=== PATIENT | female | born 1975 | race Two or more races ===

== ENCOUNTER 2022-12-10 14:40 | Emergency (ER) | payer BC ==
[~2022-12-10] VITALS: Ht 149.9 cm; Wt 59.0 kg
--- NOTE | 2022-12-10 14:50 | NUR ---
YEISON [id number] "Was in Physical Theraphy-Back pain worse now", PT HAS A CHRONIC BSACK PAIN
[2022-12-10] MEDS ORDERED: DIAZEPAM 5 MG TABLET PO ONE (15:00)
[2022-12-10] MEDS ORDERED: CYCLOBENZAPRINE 10 MG TABLET PO ONE (15:00)
[2022-12-10] MEDS ORDERED: KETOROLAC TROMETHAMINE INJ 60 MG/2 ML VIAL IM ONE (15:00)
--- NOTE | 2022-12-10 15:00 | NUR ---
DR MINA AT BEDSIDE FOR EVAL
[2022-12-10] MEDS ORDERED: CYCLOBENZAPRINE 10 MG TABLET ONE (15:04)
[2022-12-10] MEDS ORDERED: DIAZEPAM 5 MG TABLET ONE (15:04)
[2022-12-10] MEDS ORDERED: KETOROLAC TROMETHAMINE INJ 30 MG/ML VIAL ONE (15:04)
[2022-12-10] MEDS ORDERED: CYCL5TAB PO (15:38)
--- NOTE | 2022-12-10 16:15 | NUR ---
"SW Consult: SW consult was requested for homeless pt. Pt appeared alert and oriented x3 (self,place,situation). Pt was tearful and crying due to her back pain. She was requested for this ad writer to write a letter for her not to go to work for a couple of days. SW unable to do so and referred her to request from her physican. She is homeless and has no support. She reported mental illness: Depression and anxiety. SW had to provide emotional support. Pt denies visual/auditory hallucinations. Pt denies suicidal or homicidal ideation. Pt did not want TAP card and refused to sign waiver form. SW placed in chart. She was accepting of the resources. She stated that she resides at [facility] and has a penitentiary. She stated she was going to order an uber back to her penitentiary. DC PLAN: Pt stated she is ordering a uber back to [facility]. Shelters: [facility] Provider: [facility] Address: [address] [place] [address], [facility] # of Beds: 47 Population Served: [facility] 6 | [facility] Provider: [facility] Address: [facility] [address], [address] # of Beds: 66 Population Served: [facility] [place] Provider: [facility] Address: [address] [facility] [facility], [address] # of Beds: 56 Population Served: [facility] Travis OchoaMelinda [place] Provider: [facility] Address: [address] [place] [address], [address] # of Beds: 49 Population Served: [facility] 8 | [facility] Provider: [facility] Address: [address] [facility], [address] # of Beds: 37 Population Served: [facility] [address] [address] [place] ; [facility] [address] [facility] ; [facility] [place] [address] . Food Resources: [place] [employer] [facility] at [facility]- [address]; Meet Each Need with Dignity ([facility]) [address] Veloz[address] [facility]; [facility] [address] [facility]; [facility] [address] [place] Mental Health resources provided: [facility] [address] [place], [place] [id number] ; [facility] [address] [facility] [address], [place], [place] [id number] ; [facility] [address] [place], [place] [id number] ; [facility] [address] [place], [place] [id number] Healthcare Clinics: [facility] [address] [facility], [address] [place]. [place] ; [facility] [address] [place] [address]; [facility] [place] [address] [facility]. [place] [phone]) [phone] Counseling--[facility] [address], [address] [place], [place] [address] (Specializes in in-depth psychotherapy for emotional distress: anxiety, depression, interpersonal conflicts, life transitions, childhood abuse) [facility] [address] [place] [address] (Assist with solving problem marital difficulties, separation & divorce, aging parents, & grief, chronic & terminal illness) [facility] [address] [place] [address] (Deal with loss & grief, anxiety, marital difficulties) Homebound/Mental Health Services [address] [facility], [address] [place], [place] [id number] (Provide in-home mental services to people who are incapable of leaving their homes) [facility] Senior Service/Resource Center [address] [place] [address] [facility] [address] [place] [address] PSYCHIATRIC OUTPATIENT SERVICES [facility] Partial Hospitalization and Intensive Outpatient Program (Managed Care and [place] Only)[address] [address] [facility] [phone] [facility] Partial Hospitalization and Outpatient [id number] [place], [place] [phone] [facility] [place] Umd[address] [place], [place] [phone] [facility] Partial Hospitalization and Outpatient [id number] [facility] Garett NugentNEW SALEM, [phone] "
[2022-12-10 16:23] VITALS: BP 112/67; TEMP 97.7; O2SAT 100
--- NOTE | 2022-12-10 16:23 | NUR ---
Patient discharged to home in stable condition. Written and verbal after care instructions given. Patient verbalizes understanding of instruction.
== END 2022-12-10 16:24 | disposition home or self-care (01) ==
LOC: ER 15:46
DX: M54.50 Low back pain, unspecified (principal)
CPT/HCPCS: 99283; 96372; J1885